=== PATIENT | female | born 1990 | race Caucasian/White ===

== ENCOUNTER 2016-09-03 10:20 | Emergency (ER) | payer MEDICAID ==
[~2016-09-03] VITALS: Ht 162.6 cm; Wt 49.0 kg
[2016-09-03 10:32] VITALS: BP 109/70
[2016-09-03] MEDS ORDERED: PRENATAL VITAMI1 TA2 PO (10:38)
--- NOTE | 2016-09-03 10:55 | NUR ---
Patient ambulated to [facility] to be evaluated as fast track. RN evaluating patient.
--- NOTE | 2016-09-03 10:55 | NUR ---
PATIENT PRESENTS TO ED WITH C/O LEFT SHOULDER PAIN . PT DENIES ANY FALL OR TRAUMA . DENIES N/V/D; SKIN IS PINK/WARM/DRY; AAOX4 WITH EVEN AND STEADY GAIT; LUNGS CLEAR BL; HR EVEN AND REGULAR; PT DENIES ANY FEVER, CP, SOB, OR COUGH AT THIS TIME; PATIENT STATES PAIN OF 9/10 AT THIS TIME; VSS; PT IN OVERFLOW; ER MD MADE AWARE OF PT STATUS.
--- NOTE | 2016-09-03 10:56 | NUR ---
Dr. Arndt evaluating patient as fast track.
--- NOTE | 2016-09-03 11:00 | NUR ---
Sling applied by EMT.
[2016-09-03 11:12] VITALS: BP 109/70
--- NOTE | 2016-09-03 11:14 | NUR ---
Patient discharged with v/s stable. Written and verbal after care instructions given and explained. Patient verbalized understanding. Ambulatory with steady gait. All questions addressed prior to discharge. Advised to follow up with PMD.
== END 2016-09-03 11:14 | disposition home or self-care (01) ==
LOC: MED 10:20
DX: O9A.211 Injury, poisoning and certain other consequences of external causes complicating pregnancy, first trimester (principal); S46.912A Strain of unspecified muscle, fascia and tendon at shoulder and upper arm level, left arm, initial encounter; Z3A.12 12 weeks gestation of pregnancy; X58.XXXA Exposure to other specified factors, initial encounter; Y93.89 Activity, other specified; Y92.89 Other specified places as the place of occurrence of the external cause; Y99.8 Other external cause status